=== PATIENT | female | born 1980 | race Caucasian/White ===

== ENCOUNTER 2016-10-18 14:54 | Emergency (ER) | payer MEDICAID ==
[~2016-10-18] VITALS: Ht 167.6 cm; Wt 90.7 kg
[2016-10-18 15:33] VITALS: BP 110/72
== END 2016-10-18 16:07 | disposition home or self-care (01) ==
LOC: ER 14:59
DX: S09.8XXA Other specified injuries of head, initial encounter (principal); E07.89 Other specified disorders of thyroid; W01.0XXA Fall on same level from slipping, tripping and stumbling without subsequent striking against object, initial encounter; Y93.89 Activity, other specified; Y99.8 Other external cause status; Y92.89 Other specified places as the place of occurrence of the external cause
CPT/HCPCS: 70450